=== PATIENT | female | born 1990 | race Caucasian/White ===

== ENCOUNTER 2021-02-17 10:32 | Outpatient (CLI) | payer OTHER, SELFPAY ==
[2021-02-17 11:25] LABS: Beta HCG Quantitative < 2.39 mIU/ML
== END 2021-02-17 10:33 | disposition home or self-care (01) ==
LOC: ANHLAB 10:37
PROVIDERS: Visit Provider Student in an Organized Health Care Education/Training Program
DX: Z97.5 Presence of (intrauterine) contraceptive device (principal)
CPT/HCPCS: 36415; 84702